=== PATIENT | female | born 1950 | race Caucasian/White ===

== ENCOUNTER → 2018-09-18 | Outpatient (CLI) | payer MEDICARE, BC ==
[~2018-09-18] VITALS: Ht 172.7 cm; Wt 90.1 kg
[~2018-09-18] MED LIST: ASPIRIN E.C. 8181 MG PO; LIPITOR 40MG TA40 MG PO; REQUIP 1MG T1 MG/TAB PO; STIOLTO RESPIMAT4 GM IH; ZETIA 10MG TAB10 MG PO
[2018-09-18 13:24] VITALS: BP 144/99; PULSE 88
[2018-09-18 14:20] VITALS: BP 156/92; PULSE 89
== END ==
LOC: COL.RAD 12:49
DX: M99.71 Connective tissue and disc stenosis of intervertebral foramina of cervical region (principal)